=== PATIENT | female | born 1970 | race American Indian/Alaskan Native ===

== ENCOUNTER 2019-05-21 22:42 | Emergency (ER) | payer SELFPAY ==
--- NOTE | 2019-05-21 23:36 | Emergency Department Report ---
ED Chest Pain HPI - General Chief Complaint: Chest Pain Stated Complaint: CHEST PAIN Time Seen by Provider: 05/21/19 22:53 Source: patient, EMS Mode of arrival: Stretcher Limitations: No Limitations - History of Present Illness Initial Comments: 49-year-old female presents to the emergency department via EMS from home with a complaint of some midsternal to left-sided chest pain that started earlier this evening, prior to arrival. She says they are sharp intermittent pains. Also hurts her when she is taking deep breaths. Secondaril y the patient also complains of some chronic abdominal pains to the upper abdomen mostly occurs in the morning. She denies any nausea, vomiting, fever, back pain, diaphoresis. She is a tobacco smoker. Denies any illicit drug use. No recent travel or sick contacts at home. She also denies any family history of early cardiac disease or events. - Related Data Home Medications Medication Instructions Recorded Confirmed Last Taken No Known Home Medications [No 05/21/19 05/21/19 Unknown Reported Home Medications] Allergies Allergy/AdvReac Type Severity Reaction Status Date / Time No Known Allergies Allergy Unverified 05/21/19 23:02 Heart Score - HEART Score History: Slightly suspicious EKG: Normal Age: 45-65 Risk factors: 1-2 risk factors Troponin: < normal limit HEART Score: 2 - Critical Actions Critical Actions: 0-3 pts:0.9-1.7%risk of adverse cardiac event.Candidate for marshal ya ED Review of Systems ROS: Stated complaint: CHEST PAIN Other details as noted in HPI Comment: All other systems reviewed and negative Constitutional: denies: chills, fever Eyes: denies: eye pain, vision change ENT: denies: ear pain, throat pain Respiratory: shortness of breath. denies: cough Cardiovascular: chest pain. denies: palpitations Gastrointestinal: abdominal pain. denies: vomiting Genitourinary: denies: dysuria, discharge Musculoskeletal: denies: back pain, arthralgia Skin: denies: rash, lesions Neurological: denies: headache, weakness ED Past Medical Hx - Past Medical History Previous Medical History?: No - Surgical History Past Surgical History?: No - Social History Smoking Status: Heavy Tobacco Smoker Substance Use Type: Alcohol - Medications Home Medications: Home Medications Medication Instructions Recorded Confirmed Last Taken Type No Known Home Medications [No 05/21/19 05/21/19 Unknown History Reported Home Medications] ED Physical Exam - General Limitations: No Limitations - Other Other exam information: GENERAL: The patient is well-developed well-nourished. HEENT: Normocephalic. Atraumatic. Patient has moist mucous membranes. EYES: Extraocular motions are intact. Pupils equal reactive to light bilaterally. NECK: Supple. Trachea is midline. CHEST/LUNGS: Clear to auscultation. There is no respiratory distress noted. HEART/CARDIOVASCULAR: Regular. There is no tachycardia. No murmur heard. ABDOMEN: Abdomen is soft. Mild epigastric and left upper quadrant tenderness to palpation. No guarding. Patient has normal bowel sounds. There is no abdominal distention. SKIN: Skin is warm and dry. NEURO: The patient is awake, alert, and oriented. The patient is cooperative. The patient has no focal neurologic deficits. Normal speech. MUSCULOSKELETAL: There is no tenderness or deformity. There is no limitation range of motion. There is no evidence of acute injury. ED Course Vital Signs 05/21/19 05/21/19 05/21/19 22:55 23:00 23:19 Pulse Rate 84 80 Respiratory 15 16 Rate Blood Pressure 115/72 115/72 O2 Sat by Pulse 97 97 97 Oximetry 05/21/19 05/21/19 05/22/19 23:41 23:45 00:00 Pulse Rate 85 78 77 Respiratory 15 11 L 20 Rate Blood Pressure 115/72 124/69 109/65 O2 Sat by Pulse 97 97 99 Oximetry 05/22/19 05/22/19 05/22/19 00:15 00:31 00:45 Pulse Rate 83 86 77 Respiratory 18 19 18 Rate Blood Pressure 115/72 115/72 115/72 O2 Sat by Pulse 94 96 97 Oximetry 05/22/19 05/22/19 05/22/19 01:00 01:15 01:31 Pulse Rate 94 H 93 H 89 Respiratory 14 20 17 Rate Blood Pressure 107/66 107/66 107/66 O2 Sat by Pulse 96 97 94 Oximetry 05/22/19 05/22/19 05/22/19 01:55 02:01 02:15 Pulse Rate 94 H 95 H 88 Respiratory 14 14 11 L Rate Blood Pressure 107/66 122/65 122/65 O2 Sat by Pulse 97 95 97 Oximetry 05/22/19 05/22/19 05/22/19 02:31 02:45 03:00 Pulse Rate 85 89 92 H Respiratory 19 14 17 Rate Blood Pressure 122/65 107/66 115/66 O2 Sat by Pulse 95 98 94 Oximetry 05/22/19 05/22/19 05/22/19 03:15 03:31 03:45 Pulse Rate 85 89 89 Respiratory 10 L 10 L 14 Rate Blood Pressure 115/66 115/66 115/66 O2 Sat by Pulse 96 96 95 Oximetry FADI score - Fadi Score Age > 65: (0) No Aspirin use within the Past 7 Days: (0) No 3 or more CAD Risk Factors: (0) No 2 or more Angina events in past 24 hrs: (1) Yes Known CAD with more than 50% Stenosis: (0) No Elevated Cardiac Markers: (0) No ST Deviation Greater than 0.5mm: (0) No FADI Score: 1 ED Medical Decision Making - Lab Data Result diagrams: 05/21/19 23:26 05/21/19 23:26 - EKG Data -: EKG Interpreted by Me EKG shows normal: sinus rhythm, axis, intervals, QRS complexes, ST-T waves Rate: normal - EKG Data When compared to previous EKG there are: previous EKG unavailable Interpretation: normal EKG - Radiology Data Radiology results: report reviewed, image reviewed interpreted by me: Chest x-ray does not show any pleural effusions, pneumonia, focal consolidation, pneumothorax, or any other acute process. CT angiography of the chest does not show any pulmonary embolism or any other acute process. CT of the abdomen and pelvis without contrast shows uterine fibroid disease but otherwise no acute process. - Medical Decision Making This patient presents with some midsternal to left-sided sharp intermittent chest pains, intermittent shortness of breath and some more chronic upper abdominal pain. EKG does not show any signs of ST elevation SD or ischemia. Chest x-ray is unremarkable. Labs are mostly unremarkable including negative troponins 2 but she did have a slightly elevated and equivocal d-dimer. For this reason a CT angiography of the chest was completed but did not show any pulmonary embolism or any other acute process. CT of the abdomen and pelvis did not show any acute process and show some chronic uterine fibroid disease. She is low on the heart and FADI score. Vital signs were stable throughout her ED c ourse. The patient appears safe for discharge home at this time. She does not live here and is on her way to [place]. She has been instructed to follow up with a primary care physician and demonstrator sales as soon as she gets settled but to go to the closest emergency department with any return of her chest pain, worsening of her symptoms, or with any acute distress. - Differential Diagnosis SD, costochondritis, PE, GERD Critical Care Time: No Critical care attestation.: If time is entered above; I have spent that time in minutes in the direct care of this critically ill patient, excluding procedure time. ED Disposition Clinical Impression: Intermittent chest pain, Abdominal pain, Uterine fibroid Disposition: TO HOME OR SELFCARE Is pt being admited?: No Condition: Stable Instructions: Chest Pain (ED), Uterine Fibroids (ED), Abdominal Pain (ED) Additional Instructions: Please follow up with a primary care physician and a demonstrator sales as soon as you are able to do so. Return to the closest emergency department with any return of her chest pain, worsening of your symptoms, or with any acute distress. Referrals: PCP, Your [Other] - 3-5 Days Time of Disposition: 03:18
--- NOTE | 2019-05-21 23:53 | XRay Report ---
CHEST 1 VIEW INDICATION: CP. COMPARISON: None FINDINGS: Artifact obscures fine detail SUPPORT DEVICES: None. HEART / MEDIASTINUM: No significant abnormality. LUNGS / PLEURA: No significant pulmonary or pleural abnormality. No pneumothorax. ADDITIONAL FINDINGS: IMPRESSION: 1. No acute findings. Signer Name: Chris Malone MD Signed: 05/21/2019 11:49 PM Workstation Name: [id number]
[2019-05-22 00:02] LABS: Basophils # (Auto) 0.1 K/mm3 (0.0-0.1); Basophils % (Auto) 0.6 % (0.0-1.8); Eosinophils # (Auto) 0.5 K/mm3 (0.0-0.4); Eosinophils % (Auto) 5.1 % (0.0-4.3); Hematocrit 38.8 % (30.3-42.9); Hemoglobin 13.2 gm/dl (10.1-14.3); Lymphocytes # (Auto) 3.5 K/mm3 (1.2-5.4); Lymphocytes % (Auto) 36.4 % (13.4-35.0); Mean Corpuscular HGB Conc 34 % (30-34); Mean Corpuscular Volume 99 fl (79-97); Monocytes # (Auto) 0.7 K/mm3 (0.0-0.8); Monocytes % (Auto) 7.7 % (0.0-7.3); Platelet Count 206 K/mm3 (140-440); Red Blood Count 3.92 M/mm3 (3.65-5.03)
[2019-05-22 00:10] LABS: INR 0.97 (0.87-1.13)
[2019-05-22 01:10] LABS: Alanine Aminotransferase 14 units/L (7-56); Albumin 4.3 g/dL (3.9-5); BUN/Creatinine Ratio 14; Blood Urea Nitrogen 15 mg/dL (7-17); Calcium 9.7 mg/dL (8.4-10.2); Hemolysis Index 15
--- NOTE | 2019-05-22 02:14 | Cat Scan Report ---
CTA CHEST WITH IV CONTRAST INDICATION / CLINICAL INFORMATION: CP, elevated dimer. TECHNIQUE: Axial CT images were obtained through the chest after injection of 100 cc Omnipaque 350 milligrams pe rcent IV contrast. 3 plane MIP and/or 3D reconstructions were produced. All CT scans at this location are performed using CT dose reduction for ALARA by means of automated exposure control. COMPARISON: None available. FINDINGS: PULMONARY ARTERIES: No pulmonary emboli. THORACIC AORTA: No significant abnormality. HEART: No significant abnormality. CORONARY ARTERIES: No significant calcification. PLEURA: No pleural effusion. No pneumothorax. LYMPH NODES: No significant adenopathy. Ossified subcarinal lymph nodes present. LUNGS: No acute air space or interstitial disease. Multiple small calcified granulomas are present. ADDITIONAL FINDINGS: None. SKELETAL STRUCTURES: No significant osseous abnormality. Mild degenerative changes thoracic spine not ed IMPRESSION: 1. No CT evidence for pulmonary embolism. 2. Old granuloma disease Signer Name: Chris Malone MD Signed: 05/22/2019 2:09 AM Workstation Name: [email or web address]
--- NOTE | 2019-05-22 02:32 | Cat Scan Report ---
CT ABDOMEN AND PELVIS WITH CONTRAST INDICATION / CLINICAL INFORMATION: abd pain. TECHNIQUE: Axial CT images were obtained through the abdomen and pelvis after IV contrast. All CT scans at this location are performed using CT dose reduction for ALARA by means of automated exposure control. COMPARISON: None available. FINDINGS: LOWER CHEST: No significant abnormality. LIVER: No significant abnormality. GALLBLADDER: No significant abnormality. BILE DUCTS: No significant abnormality. PANCREAS: No significant abnormality. SPLEEN: No significant abnormality. ADRENALS: No significant abnormality. RIGHT KIDNEY and URETER: No significant abnormality. LEFT KIDNEY and URETER: No significant abnormality. STOMACH and SMALL BOWEL: No significant abnormality. COLON: No significant abnormality. APPENDIX: No significant abnormality. PERITONEUM: No free fluid. No free air. No fluid collection. LYMPH NODES: No significant adenopathy. AORTA and ARTERIES: No significant abnormality. IVC and VEINS: No significant abnormality. URINARY BLADDER: No significant abnormality. REPRODUCTIVE ORGANS: No significant abnormality. Lobulated enlarged uterus most consistent with uteri ne fibroids ADDITIONAL FINDINGS: None. SKELETAL SYSTEM: No significant abnormality. IMPRESSION: 1. No significant abnormality. Multiple uterine fibroids Signer Name: Chris Malone MD Signed: 05/22/2019 2:27 AM Workstation Name: [email or web address]
[2019-05-22 03:58] VITALS: BP 115/66
[2019-05-22 06:00] LABS: Bacteria,Urine 2+ /HPF (Negative); Bilirubin,Urine NEG (Negative); Blood,Urine SM (Negative); Color,Urine Yellow (Yellow); Protein,Urine <15 mg/dL mg/dL (Negative); Urobilinogen,Urine < 2.0 mg/dL (<2.0)
== END 2019-05-22 04:26 | disposition home or self-care (01) ==
LOC: ED 22:42
DX: D25.9 Leiomyoma of uterus, unspecified (principal); F17.200 Nicotine dependence, unspecified, uncomplicated
CPT/HCPCS: 36415; 71275; 74022; 74177; 80053; 81001; 83690; 84484; 85025; 85379; 85610; 93005; 93010; 99285; Q9967; 80320; G0480